=== PATIENT | female | born 1990 | race African-American/Black ===

== ENCOUNTER 2019-06-06 12:35 | Outpatient (CLI) | payer BC ==
--- NOTE | 2019-06-06 13:02 | RAD ---
XR Foot Rt 3 View STANDARD: 06/06/2019 12:00 AM CLINICAL INDICATION: Pain COMPARISON: None. FINDINGS: Fracture:No fracture. Arthropathy:Mild osteoarthritis Incidental findings:None of significance. IMPRESSION: 1. No acute osseous abnormality.
== END 2019-06-06 12:36 | disposition home or self-care (01) ==
LOC: RAD 12:35
PROVIDERS: ATTEND Family Medicine
DX: M25.571 Pain in right ankle and joints of right foot (principal); M79.674 Pain in right toe(s)

== ENCOUNTER 2020-01-02 09:19 | Emergency (ER) | payer BC, OTHER ==
[2020-01-02 18:32] LABS: SARS-CoV-2 MS2 Positive; SARS-CoV-2 N Gene Negative; SARS-CoV-2 S Gene Negative; SARS-CoV-2 orf1ab Negative
== END 2020-01-02 10:21 | disposition home or self-care (01) ==
LOC: ERS 09:19
DX: R05 Cough (principal); Z20.828 Contact with and (suspected) exposure to other viral communicable diseases
CPT/HCPCS: 87635; 99283; U0003